=== PATIENT | male | born 1950 | race Caucasian/White ===

== ENCOUNTER → 2017-05-10 | Outpatient (CLI) | payer OTHER ==
[~2017-05-10] MED LIST: GADAVIST IV PRN
[2017-05-10 10:34] LABS: BLOOD UREA NITROGEN 17 mg/dl (7-18)
--- NOTE | 2017-05-10 12:09 | DIAGNOSTIC IMAGING REPORT ---
MRI THE PELVIS WITHOUT A WITH GADOLINIUM CLINICAL HISTORY: MASS OF PENILE BASE AND BULB, R/O R INGUINAL ABSCESS COMPARISON STUDY: No previous studies for comparison. FINDINGS: There is a multiloculated cystic mass involving the corpus spongiosum at the volar base of the penis measuring 5 x 2.5 x 3 cm. There is mass effect on the adjacent urethra. Direct to medication with the urethra would be difficult to exclude. Urethral integrity cannot be assessed on the basis of this study. There is no pathologic adenopathy. IMPRESSION: 1. 5 x 2.5 x 3 cm multiloculated cystic mass involving the corpus spongiosum. There is mild mass effect on the adjacent urethra. Direct medication cannot be excluded the basis of this study. The mass is nonspecific, but an inflammatory lesion is favored over a cystic penile neoplasm. Electronically signed by: Bam Lewis M.D. 05/10/2017 12:08 PM Dictated Date/Time: 05/10/2017 11:40 AM
== END | disposition home or self-care (01) ==
LOC: C.MRI 09:40
PROVIDERS: ATTEND Urology
DX: N48.9 Disorder of penis, unspecified (principal); R30.0 Dysuria

== ENCOUNTER → 2017-05-29 | Outpatient (CLI) | payer OTHER ==
[~2017-05-29] MED LIST changes: +ADVIN10/60 INH; +ALBUAER INH; +AMAN100C18 PO; +ATOR-24 PO; +ATRINS NEB; +CANA1TAB PO; +CHOL20007 PO; +FURO-85 PO; +GLC/500 PO; +LANS30CA12 PO; +MECL1TAB42 PO; +MELO7.5T5 PO; +OMEG10007 PO; +OXGN; +PARO1TAB27 PO; +SULF800T23 PO; +VSC/5 PO
--- NOTE | 2017-05-29 11:45 | DIAGNOSTIC IMAGING REPORT ---
PELVIC COMBO CLINICAL HISTORY: 66 years-old Male presenting with N36.9 N48.9 N49.2, penile mass, scrotal abscess, urethral lesion. TECHNIQUE: Multisequence, multiplanar MR imaging of the pelvis was performed before and after the administration of intravenous contrast. IV contrast: 9.5 mL of Gadavist. COMPARISON: 05/10/2017. FINDINGS: Localizer images: Unremarkable. There has been surgical incision and drainage of the previously identified T2 hyperintense, rim-enhancing multilocular cystic collection associated with the corpus spongiosum. A small collection remains measuring 1.4 x 0.7 cm in maximal axial dimension and extends approximately 2.9 cm along the length of the penis. The collection appears subjacent to the penile urethra. Associated skin thickening is likely also present along the dorsal aspect. Surrounding hyperemia of the soft tissues likely reactive. Trace bilateral hydroceles. The testes are normal appearing. Fat-containing left inguinal hernia. Although the examination was not tailored for evaluation of the prostate, the prostate and seminal vesicles are grossly normal. No significant changes of benign prostatic hyperplasia are evident. Vasculature grossly patent. No inguinal lymphadenopathy. IMPRESSION: Interval decreased size of the penile collection most consistent with incision and drainage of a penile abscess. This is intimately associated with the penile urethra. Surrounding inflammatory changes of the dorsal penis. Electronically signed by: Josesito Lopez M.D. 05/29/2017 11:44 AM Dictated Date/Time: 05/29/2017 11:36 AM
== END | disposition home or self-care (01) ==
LOC: C.MRI 10:14
PROVIDERS: ATTEND Urology
DX: N36.9 Urethral disorder, unspecified (principal); N48.9 Disorder of penis, unspecified; N49.2 Inflammatory disorders of scrotum

== ENCOUNTER 2017-06-19 04:53 | Day surgery (SDC) | payer OTHER ==
[2017-05-18 10:24] VITALS: BMI 29.0
--- NOTE | 2017-05-18 11:03 | PAT Medication Instructions ---
Service Date May 18, 2017. Current Home Medication List Albuterol Sulfate (Proventil Hfa), 2 PUFFS INH Q4H PRN for RN Amantadine Hcl (Amantadine Hcl), 100 MG PO BID Atorvastatin (Lipitor), 40 MG PO QPM Canagliflozin (Invokana), 100 MG PO QAM Cholecalciferol (Vitamin D3), 1 TAB PO QAM Fish Oil ([place]-3), 1 CAP PO QPM Fluticasone Prop/Salmeterol (Advair Diskus 100/50 60 Dose), 2 PUFF INH BID Furosemide (Lasix), 20 MG PO QAM Home O2 Therapy (Oxygen), 2.5 LITERS NA PRN Ipratropium [place] (Ipratropium [place]), 1 VIAL NEB BID Lansoprazole (Prevacid), 30 MG PO BID Meclizine Hcl (Meclizine Hcl), 1 TAB PO PRN Meloxicam (Mobic), 15 MG PO PRN Metformin Hcl (Glucophage), 500 MG PO BID Paroxetine (Paxil), 30 MG PO QPM Solifenacin (Vesicare), 5 MG PO QPM Sulfa/Trimethoprim (Bactrim Ds 800MG/160MG), 1 TAB PO BID Medication Instructions For Your Scheduled Surgery -Continue as directed: Home O2 Therapy (Oxygen), 2.5 LITERS NA PRN -Contact your surgeon for instructions for: Meloxicam (Mobic), 15 MG PO PRN - Hold the following medications starting today 05/18: Fish Oil ([place]-3), 1 CAP PO QPM - Hold the following medications 48 hours prior to surgery: Metformin Hcl (Glucophage), 500 MG PO BID - Hold the following medications the morning of surgery: Canagliflozin (Invokana), 100 MG PO QAM Cholecalciferol (Vitamin D3), 1 TAB PO QAM Furosemide (Lasix), 20 MG PO QAM - Take the following medications the morning of surgery with a sip of water: Lansoprazole (Prevacid), 30 MG PO BID Meclizine Hcl (Meclizine Hcl), 1 TAB PO PRN (if needed) Amantadine Hcl (Amantadine Hcl), 100 MG PO BID Ipratropium [place] (Ipratropium [place]), 1 VIAL NEB BID Albuterol Sulfate (Proventil Hfa), 2 PUFFS INH Q4H PRN for RN (if needed) Fluticasone Prop/Salmeterol (Advair Diskus 100/50 60 Dose), 2 PUFF INH BID Sulfa/Trimethoprim (Bactrim Ds 800MG/160MG), 1 TAB PO BID - Take the following medications as scheduled the night before surgery: Paroxetine (Paxil), 30 MG PO QPM Solifenacin (Vesicare), 5 MG PO QPM Atorvastatin (Lipitor), 40 MG PO QPM Lansoprazole (Prevacid), 30 MG PO BID Meclizine Hcl (Meclizine Hcl), 1 TAB PO PRN (if needed) Amantadine Hcl (Amantadine Hcl), 100 MG PO BID Ipratropium [place] (Ipratropium [place]), 1 VIAL NEB BID Albuterol Sulfate (Proventil Hfa), 2 PUFFS INH Q4H PRN for RN (if needed) Fluticasone Prop/Salmeterol (Advair Diskus 100/50 60 Dose), 2 PUFF INH BID Sulfa/Trimethoprim (Bactrim Ds 800MG/160MG), 1 TAB PO BID If you have any questions please call us at [phone] or [phone] or [phone]
--- NOTE | 2017-05-18 12:01 | DIAGNOSTIC IMAGING REPORT ---
CHEST 2 VIEWS ROUTINE CLINICAL HISTORY: Preoperative chest COMPARISON STUDY: None FINDINGS: The patient is hyperinflated. The heart is normal in size. There is no focal pulmonary consolidation. There is a right pleural effusion versus chronic pleural thickening.[ There is no evidence of failure. IMPRESSION: Small right pleural effusion versus chronic pleural thickening. Electronically signed by: Bam Lewis M.D. 05/18/2017 11:59 AM Dictated Date/Time: 05/18/2017 11:58 AM
[2017-05-18 13:15] LABS: BASO % 0.3 %; BASO ABS # 0.03 K/uL (0-0.2); EOS % 1.7 %; HEMATOCRIT 50.3 % (42-52); HEMOGLOBIN 16.9 g/dL (14.0-18.0); IG# 0.13 K/uL (0.00-0.02); LYMPH % 10.6 %; LYMPH ABS # 1.24 K/uL (1.2-3.4); MEAN CELL VOLUME 91.8 fL (80-100); MEAN CORPUSCULAR HEMOGLOBIN 30.8 pg (25-34); MEAN CORPUSCULAR HGB CONC 33.6 g/dl (32-36); MEAN PLATELET VOLUME 10.2 fL (7.4-10.4); MONO ABS # 0.94 K/uL (0.11-0.59); NEUT % 78.3 %; NEUT ABS # 9.14 K/uL (1.4-6.5); PLATELET COUNT 371 K/uL (130-400); RED CELL DISTRIBUTION WIDTH CV 14.7 % (11.5-14.5); RED CELL DISTRIBUTION WIDTH SD 49.7 fL (36.4-46.3); WHITE BLOOD COUNT 11.68 K/uL (4.8-10.8)
[~2017-06-19] VITALS: Ht 175.3 cm; Wt 90.7 kg
[~2017-06-19 04:53] MED LIST changes: +CIPROFLOXACIN / D5W 400 MG IV SCH; -GADAVIST IV PRN; +GENTAMICIN INJ 120 MG in DEXTROSE 5% 100ML 100 ML IV SCH; +LACTATED RINGER'S 1000ML 1,000 ML IV SCH
[2017-06-19 05:48] VITALS: BP 155/64; PULSE 72; TEMP 36.6; O2SAT 93; Ht 175.3 cm; Wt 90.7 kg
[2017-06-19] MEDS ORDERED: LACTATED RINGER'S 1000ML 1,000 ML IV SCH (06:00)
[2017-06-19] MEDS ORDERED: CIPROFLOXACIN / D5W 400 MG IV SCH (06:00)
[2017-06-19] MEDS ORDERED: GENTAMICIN INJ 120 MG in DEXTROSE 5% 100ML 100 ML IV SCH (06:00)
[2017-06-19] MEDS ORDERED: BACITRACIN OINT 15 GM TUBE ONE (06:57)
[2017-06-19] MEDS ORDERED: BUPIVACAINE 0.5 % 5 MG/1 ML MPF 30ML VIAL ONE (06:58)
--- NOTE | 2017-06-19 06:58 | History & Physical Bridge Note ---
H&P Re-Evaluation Bridge Note: I have examined the patient, reviewed the History & Physical and in the interval since the performance of the History & Physical I have noted the following changes of clinical significance: No changes noted
[2017-06-19] MEDS ORDERED: ATROPINE SULFATE 0.1 MG/ML 5ML SYR IV PRN (07:00)
[2017-06-19] MEDS ORDERED: FENTANYL CITRATE INJ 50 MCG/1 ML 2 ML VIAL IV PRN (07:00)
[2017-06-19] MEDS ORDERED: EpHEDrine SULFATE INJ 50 MG/ML AMP IV PRN (07:00)
[2017-06-19] MEDS ORDERED: ONDANSETRON INJ 2 MG/ML 2 ML VIAL IV PRN (07:00)
[2017-06-19] MEDS ORDERED: MIDAZOLAM HCL 1 MG/ML 2ML VIAL ONE (07:07)
[2017-06-19] MEDS ORDERED: FENTANYL CITRATE INJ 50 MCG/1 ML 2 ML VIAL ONE ×2 (07:07→08:02)
[2017-06-19] MEDS ORDERED: EpHEDrine SULFATE INJ 50 MG/ML AMP ONE (07:54)
[2017-06-19] MEDS ORDERED: LIDOCAINE 2% 20 MG/ML 5ML SYR IV ONE (07:54)
[2017-06-19] MEDS ORDERED: ONDANSETRON INJ 2 MG/ML 2 ML VIAL ONE (07:54)
[2017-06-19] MEDS ORDERED: PROPOFOL IV EMULSION 10 MG/ML 20 ML VIAL IV ONE (07:54)
--- NOTE | 2017-06-19 08:29 | [facility] Post Operative Brief Note ---
Immediate Operative Summary Operative Date Jun 19, 2017. Pre-Operative Diagnosis Penoscrotal Mass Post-Operative Diagnosis Same as preoperative Procedure(s) Performed Exploration, Excision and Drainage of Scrotal Mass Surgeon Dr. Andrew Ferrera Vial Gauger Surgeon(s) NELIDA Lopez Estimated Blood Loss 10ml Findings Consistent with Post-Op Diagnosis Specimens PERMANENT: A.) Penoscrotal Lesion CULTURE: 1.) Penoscrotal Lesion for Culture Anesthesia Type General Complication(s) none Disposition Accompanied Pt To Recover: yes Disposition: Recovery Room / PACU
[2017-06-19] MEDS ORDERED: HYDR-5688 PO (08:35)
[2017-06-19] MEDS ORDERED: DOCU-94 PO (08:35)
[2017-06-19] MEDS ORDERED: CEPH500C2 PO (08:35)
--- NOTE | 2017-06-19 08:42 | Discharge Instructions ---
Discharge Instructions Date of Service Jun 19, 2017. Admission Reason for Admission: Scrotal Mass Discharge Discharge Diagnosis / Problem: Scrotal mass Discharge Goals Goal(s): Decrease discomfort, Improve disease control, Diagnostic testing, Therapeutic intervention Activity Recommendations Activity Limitations: as noted below Lifting Limitations: no more than 10 pounds (x 2 weeks. ) Exercise/Sports Limitations: rest today, until after follow-up appointment ( Light activity -no heavy lifting or strenous exercise x 1 month) May Resume Sexual Activity: after follow-up appointment (when cleared by Dr. Ferrera) Shower/Bathe: tomorrow (Shower only. No tub baths. ) Driving or Machine Use: resume 3 days after discharge (Do not drive while taking narcotics. ) . Instructions / Follow-Up Instructions / Follow-Up 1. Ice packs every 20 minutes while awake and scrotal support x 48hrs. 2. Wash incision twice daily with soap and water and apply Bacitracin ointment and clean gauze. 3. You have been prescribed the antibiotic Keflex. Finish all as prescribed. 4. Follow-up on 06-22-17 at 1:00pm for a nursing visit for drain removal at [address] [place] [address]. Please call our office at if you need to reschedule for any reason. Current Hospital Diet Patient's current hospital diet: Discharge Diet Recommended Diet: Diabetes Type 2 Diet Procedures Procedures Performed: Exploration, Excision and Drainage of Scrotal Mass Pending Studies Studies pending at discharge: yes List of pending studies: penoscrotal culture and tissue Medical Emergencies . Who to Call and When: Medical Emergencies: If at any time you feel your situation is an emergency, please call 911 immediately. . Non-Emergent Contact Non-Emergency issues call your: Urologist Call Non-Emergent contact if: temperature is above 101.5, your pain is not controlled, your pain is worsening, your pain is unusual for you, your pain is concerning you, wound has increased drainage, wound has increased redness, wound has increased pain, you have any medication questions . . "Provider Documentation" section prepared by Sushma Reyes. . VTE Core Measure Inpt VTE Proph given/why not?: SCD's [place] Drug Monitoring Program Search Results: patient reviewed within database, no issues identified
[2017-06-19] MEDS ORDERED: HYDROCODONE/ACETAMIN 5/325MG TAB PO PRN (08:45)
[2017-06-19 09:20] VITALS: BP 126/60; PULSE 97; TEMP 36.3; O2SAT 97
--- NOTE | 2017-06-19 09:32 | Anesthesiology Progress Note ---
Anesthesia Post Op Note Date & Time Jun 19, 2017 at 09:32 Vital Signs Pain Intensity: 4 Vital Signs Past 12 Hours Date Time Temp Pulse Resp B/P (MAP) Pulse Ox O2 Delivery O2 Flow Rate FiO2 06/19/17 09:13 36.4 06/19/17 09:11 117/67 06/19/17 09:10 62 13 93 06/19/17 09:10 62 13 06/19/17 09:06 132/63 06/19/17 09:05 62 16 06/19/17 09:05 63 16 96 06/19/17 09:01 119/72 06/19/17 09:00 70 16 06/19/17 09:00 69 16 93 06/19/17 08:59 67 16 06/19/17 08:59 67 16 92 06/19/17 08:56 137/67 06/19/17 08:54 67 12 06/19/17 08:54 66 12 97 06/19/17 08:51 132/68 06/19/17 08:49 61 13 98 06/19/17 08:49 61 13 06/19/17 08:46 126/66 06/19/17 08:44 63 13 06/19/17 08:44 63 13 100 06/19/17 08:43 64 14 100 06/19/17 08:43 64 14 06/19/17 08:41 138/70 06/19/17 08:38 62 16 98 06/19/17 08:38 62 16 06/19/17 08:36 141/74 06/19/17 08:33 36.1 11 153/70 97 Oxymask 10 06/19/17 08:33 62 12 153/70 98 06/19/17 08:33 62 12 06/19/17 05:48 36.6 72 16 155/64 (94) 93 Room Air Notes Mental Status: alert / awake / arousable, participated in evaluation Pt Amnestic to Procedure: Yes Nausea / Vomiting: adequately controlled Pain: adequately controlled Airway Patency, RR, SpO2: stable & adequate BP & HR: stable & adequate Hydration State: stable & adequate Anesthetic Complications: no major complications apparent
[2017-06-19 09:50] VITALS: BP 115/58; PULSE 97; O2SAT 93
[2017-06-19 10:20] VITALS: BP 105/57; PULSE 94; O2SAT 93
--- NOTE | 2017-06-19 11:57 | [facility] Operative Report ---
Operative Report Operative Date Jun 19, 2017. Pre-Operative Diagnosis Penoscrotal Mass, Suspected Abscess Post-Operative Diagnosis Same as preoperative Procedure(s) Performed Exploration, Excision and Drainage of Penoscrotal Mass Surgeon Dr. Andrew Ferrera Ctrs Surgeon(s) NELIDA Lopez Estimated Blood Loss 10ml Findings Inflammatory, fatty tissue at the site of improved abnormality as noted on previous MRI, no urethral injury identified throughout the case. Specimens PERMANENT: A.) Penoscrotal Lesion CULTURE: 1.) Penoscrotal Lesion for Culture Drains Quarter inch Kin drain Anesthesia Type General Complication(s) none Disposition yes Recovery Room / PACU Indications Patient is a pleasant 66-year-old male who I have seen acutely for a large penoscrotal mass which has significantly improved after an extended course of antibiotics. Repeat MRI demonstrates decreased but persistent loculated periurethral lesion at the mid pendulous urethra ventrally. Patient is here today for resection of this residual abnormal tissue after decrease in size and inflammation. An abscess is suspected seen his clinical course. Please see H&P for further details. Intravenous ciprofloxacin and gentamicin are provided for antibiotic coverage and SCDs used for DVT prophylaxis. Description of Procedure Patient was properly identified and brought into the operative suite after identification of appropriate consent of the chart. General anesthesia with laryngeal mask was initiated and patient was prepped and draped in the standard fashion for this procedure. Full timeout procedure was followed. Vertical penoscrotal incision was made over the patient's palpable abnormality. This was bluntly and sharply dissected down to the area of the affected tissue which was noted to be inflammatory with brawny fat being present. No collections or purulent material were identified. A draining sinus on the penile shaft was marsupialized in the affected, abnormal tissue was resected in a piecemeal fashion. A portion of this tissue was sent for tissue culture and the remaining tissue sent for pathologic analysis. Rashid catheter was placed at the beginning of the case to gravity drainage and used for identification of the urethra. Great care was taken to use blunt dissection and cautious Metzenbaum dissection over the spongiosum with no evidence of connection or draining sinus being present on careful inspection throughout. Dissection was carried out until all abnormal tissue was felt to be removed. Excellent hemostasis was obtained using precise Bovie cautery as necessary. Wound was generously irrigated and again no significant residual abnormalities were appreciated. 1/4 inch [place] drain was brought down through a separate stab incision lower on the scrotum and drained into the deep bed of the wound. Deep tissues were reapproximated over the [place] taking great caution to avoid any entrapment using 2-0 Vicryl suture. Wound was closed in 2 layers using 2-0 and 3-0 interrupted Vicryl suture on the deeper layers and vertical mattress and interrupted 2-0 and 3-0 chromic suture at the level of the skin. Excellent hemostasis was appreciated prior to completion of closure. No significant residual abnormal tissue was noted. Bacitracin ointment was placed over the incision and a silk suture was used to secure the drain in place. Scrotal support with fluffs was placed. Plain local anesthesia was used for additional postoperative analgesia. Anesthesia was reversed and patient was transferred to the recovery room in stable condition. Follow-up Care: Patient will be provided with a short course of antibiotics as well as postoperative pain medication. Postoperative appointments are confirmed for follow-up. Worrisome signs and symptoms reviewed. Patient is instructed to contact our service should he note any fevers, chills, nausea, vomiting or other difficulties in the postoperative period. LOADING DOCK HELPER assistant store manager trainee was present throughout the case for assistance with retraction, exposure of affected tissues, hemostasis, patient safety and resection. I attest to the content of the Intraoperative Record and any orders documented therein. Any exceptions are noted below.
== END 2017-06-19 10:50 | disposition home or self-care (01) ==
LOC: C.ACU 04:53
PROVIDERS: ATTEND Urology
DX: N49.2 Inflammatory disorders of scrotum (principal); N48.9 Disorder of penis, unspecified; N36.9 Urethral disorder, unspecified; R39.12 Poor urinary stream; J44.9 Chronic obstructive pulmonary disease, unspecified; E11.9 Type 2 diabetes mellitus without complications; E78.00 Pure hypercholesterolemia, unspecified; G35 Multiple sclerosis; E78.5 Hyperlipidemia, unspecified; F32.9 Major depressive disorder, single episode, unspecified; K21.9 Gastro-esophageal reflux disease without esophagitis; I10 Essential (primary) hypertension; Z90.49 Acquired absence of other specified parts of digestive tract; Z90.89 Acquired absence of other organs; Z87.891 Personal history of nicotine dependence; Z88.0 Allergy status to penicillin